=== PATIENT | female | born 1985 | race Hispanic/Latino ===

== ENCOUNTER 2023-12-27 02:25 | Emergency (ER) | payer SELFPAY ==
[~2023-12-27] VITALS: Ht 170.2 cm; Wt 131.5 kg
[~2023-12-27 02:25] MED LIST: AMLO-258 PO; HYDR25TA PO; LEVE500T98 PO; LOSA100T59 PO; SITA1TAB6 PO
[2023-12-27] MEDS ORDERED: ASPIRIN 81MG CHEW TAB PO ONE (03:00)
[2023-12-27 03:22] LABS: BASOPHILS # (AUTO) 0.04 K/uL (0.00-0.20); BASOPHILS % (AUTO) 0.4 % (0.0-5.0); EOSINOPHILS # (AUTO) 0.25 K/uL (0.00-0.70); EOSINOPHILS % (AUTO) 2.7 % (0.0-8.0); HEMATOCRIT 28.5 % (36-48); IMMATURE GRANULOCYTE ABSOLUTE 0.14 K/uL (0-1); LYMPHOCYTES # (AUTO) 2.2 K/uL (1.0-4.8); LYMPHOCYTES % (AUTO) 23.8 % (21.0-51.0); MEAN CORPUSCULAR HEMOGLOBIN 26.6 pg (27.0-33.0); MEAN CORPUSCULAR VOLUME 78.1 fL (79-99); MONOCYTES # (AUTO) 0.5 K/uL (0.1-1.0); MONOCYTES % (AUTO) 5.9 % (3.0-13.0); NEUTROPHILS % (AUTO) 65.7 % (40.0-77.0); PLATELET COUNT (AUTO) 276 K/uL (130-400); RED BLOOD CELL COUNT(AUTO) 3.65 MIL/uL (4.00-5.50); RED CELL DISTRIBUTION WIDTH 14.4 % (11.0-15.5); WHITE BLOOD COUNT (AUTO) 9.1 K/uL (4.8-10.8)
[2023-12-27] MEDS: NITROGLYCERIN 1GM OINT 1 INCH/1GM TD ONE (03:22)
[2023-12-27] MEDS: ASPIRIN 325MG TAB PO ONE (03:26)
[2023-12-27 03:33] LABS: BILIRUBIN,TOTAL 0.3 mg/dL (0.2-1.0); CREATININE 0.6 mg/dL (0.5-1.0); POTASSIUM 3.1 mmol/L (3.5-5.1); TOTAL PROTEIN, SERUM 7.2 g/dL (6.0-8.3)
[2023-12-27 03:41] LABS: B-TYPE NATRIURETIC PEPTIDE 140 pg/mL (0-100)
[2023-12-27] MEDS: hydrALAZine 20MG/ML VIAL IV ONE (04:44)
[2023-12-27] MEDS: POTASSIUM CHLORIDE 10% ELIXIR 20 MEQ/15 ML UDCUP PO ONE (04:45)
[2023-12-27] MEDS: FUROSEMIDE 40MG VIAL IV ONE (04:45)
[2023-12-27] MEDS: INSULIN LISPRO 100 UNIT/ML 3ML SQ ONE (04:47)
[2023-12-27 05:17] LABS: APPEARANCE,URINE CLEAR (CLEAR); BILIRUBIN,URINE NEGATIVE (NEGATIVE); COLOR,URINE LIGHT-YELLOW (YELLOW); GLUCOSE, URINE (UA) >=1000 mg/dL (NEGATIVE); KETONES,URINE NEGATIVE (NEGATIVE); LEUKOCYTE ESTERASE ,URINE 250 Leu/uL (NEGATIVE); NITRATE,URINE NEGATIVE (NEGATIVE); OCCULT BLOOD,URINE MODERATE (NEGATIVE); PROTEIN,URINE 10 mg/dL (NEGATIVE); UROBILINOGEN,URINE 0.2 mg/dL (0.2-1.0)
[2023-12-27 05:18] LABS: ADD UA MICROSCOPIC YES
[2023-12-27 05:20] LABS: BACTERIA,URINE RARE /HPF (None Seen); RBC,URINE 26-50 /HPF (0-1); SQUAMOUS EPITHELIAL CELL,UR RARE /HPF (0-2); WBC,URINE 26-50 /HPF (0-1)
[2023-12-27] MEDS ORDERED: LEVE500T19 PO (05:33)
[2023-12-27] MEDS ORDERED: LOSA100T59 PO (05:33)
[2023-12-27] MEDS ORDERED: SITA1TAB6 PO (05:33)
[2023-12-27] MEDS: LOSARTAN 100 MG TABLET PO ONE (05:37)
[2023-12-27] MEDS: amLODIPine 5 MG TAB PO ONE (05:38)
[2023-12-27] MEDS: SULFAMETHOX-TMP DS 800/160 TAB PO SCH (05:52)
[2023-12-27] MEDS: CLONIDINE HCL 0.2 MG TABLET PO ONE (06:10)
[2023-12-27 06:22] VITALS: BP 169/87; PULSE 86; RESP 17; O2SAT 98
[2023-12-27] MEDS ORDERED: SULF1TAB42 PO (06:24)
[2023-12-27] MEDS ORDERED: NITR100C4 PO (06:26)
== END 2023-12-27 06:34 | disposition home or self-care (01) ==
LOC: EDH 02:25
DX: I10 Essential (primary) hypertension (principal); N39.0 Urinary tract infection, site not specified; E11.9 Type 2 diabetes mellitus without complications; E78.00 Pure hypercholesterolemia, unspecified; G40.909 Epilepsy, unspecified, not intractable, without status epilepticus; Z79.899 Other long term (current) drug therapy; Z79.84 Long term (current) use of oral hypoglycemic drugs; Z98.890 Other specified postprocedural states
CPT/HCPCS: 99285; 96374; 71045; 96375; 84484; 80053; 83880; 85025; 87086; 82948; 81001; 36415; 96372; J0360; J1940

== ENCOUNTER 2023-12-30 01:09 | Emergency (ER) | payer SELFPAY ==
[~2023-12-30 01:09] MED LIST changes: +LEVE500T19 PO; +NITR100C4 PO
[2023-12-30 01:34] LABS: BASOPHILS # (AUTO) 0.04 K/uL (0.00-0.20); BASOPHILS % (AUTO) 0.5 % (0.0-5.0); EOSINOPHILS # (AUTO) 0.28 K/uL (0.00-0.70); EOSINOPHILS % (AUTO) 3.4 % (0.0-8.0); HEMATOCRIT 29.2 % (36-48); IMMATURE GRANULOCYTE ABSOLUTE 0.04 K/uL (0-1); LYMPHOCYTES # (AUTO) 2.3 K/uL (1.0-4.8); LYMPHOCYTES % (AUTO) 27.9 % (21.0-51.0); MEAN CORPUSCULAR HEMOGLOBIN 25.9 pg (27.0-33.0); MEAN CORPUSCULAR HGB CONC 32.9 g/dL (32.0-36.0); MEAN CORPUSCULAR VOLUME 78.7 fL (79-99); MONOCYTES # (AUTO) 0.6 K/uL (0.1-1.0); MONOCYTES % (AUTO) 6.9 % (3.0-13.0); NEUTROPHILS % (AUTO) 60.8 % (40.0-77.0); PLATELET COUNT (AUTO) 282 K/uL (130-400); RED BLOOD CELL COUNT(AUTO) 3.71 MIL/uL (4.00-5.50); RED CELL DISTRIBUTION WIDTH 14.3 % (11.0-15.5); WHITE BLOOD COUNT (AUTO) 8.3 K/uL (4.8-10.8)
[2023-12-30 01:45] LABS: CREATININE 0.7 mg/dL (0.5-1.0); POTASSIUM 3.7 mmol/L (3.5-5.1)
[2023-12-30 01:57] LABS: B-TYPE NATRIURETIC PEPTIDE 119 pg/mL (0-100)
[2023-12-30 02:28] LABS: ADD UA MICROSCOPIC YES; APPEARANCE,URINE CLEAR (CLEAR); BILIRUBIN,URINE NEGATIVE (NEGATIVE); COLOR,URINE LIGHT-YELLOW (YELLOW); GLUCOSE, URINE (UA) >=1000 mg/dL (NEGATIVE); KETONES,URINE NEGATIVE (NEGATIVE); LEUKOCYTE ESTERASE ,URINE 500 Leu/uL (NEGATIVE); NITRATE,URINE NEGATIVE (NEGATIVE); OCCULT BLOOD,URINE MODERATE (NEGATIVE); PH,URINE 6.5 (5.0-8.0); PROTEIN,URINE NEGATIVE (NEGATIVE); UROBILINOGEN,URINE 0.2 mg/dL (0.2-1.0)
[2023-12-30 02:29] LABS: BACTERIA,URINE RARE /HPF (None Seen); RBC,URINE 26-50 /HPF (0-1); SQUAMOUS EPITHELIAL CELL,UR RARE /HPF (0-2); WBC,URINE 51-100 /HPF (0-1)
[2023-12-30 02:39] LABS: AMPHET/METH SCREEN,URINE NEGATIVE (NEGATIVE); BARBITURATE SCREEN, URINE NEGATIVE (NEGATIVE); BENZODIAZEPINES SCREEN,URINE NEGATIVE (NEGATIVE); CANNABINOID SCREEN,URINE NEGATIVE (NEGATIVE); COCAINE SCREEN,URINE NEGATIVE (NEGATIVE); OPIATE SCREEN,URINE NEGATIVE (NEGATIVE); PHENCYCLIDINE SCREEN,URINE NEGATIVE (NEGATIVE)
[2023-12-30] MEDS: NITROGLYCERIN 1GM OINT 1 INCH/1GM TD ONE (03:25)
[2023-12-30] MEDS: ASPIRIN 325MG TAB PO ONE (03:25)
[2023-12-30] MEDS: hydrALAZine 20MG/ML VIAL IV ONE (03:25)
[2023-12-30] MEDS: LoSARTan 25 MG TABLET PO ONE (04:13)
[2023-12-30] MEDS ORDERED: CLON0.2T PO (05:05)
[2023-12-30] MEDS ORDERED: NITR100C4 PO (05:05)
[2023-12-30] MEDS: cefTRIAXone 1G VIAL IVPB ONE (06:01)
[2023-12-30] MEDS: cloNIDine HCL 0.2 MG TABLET PO ONE (06:01)
[2023-12-30 06:10] VITALS: BP 156/80; PULSE 75; RESP 20; O2SAT 98
== END 2023-12-30 06:39 | disposition home or self-care (01) ==
LOC: EDH 01:09
DX: R07.89 Other chest pain (principal); I16.1 Hypertensive emergency; I10 Essential (primary) hypertension; E11.65 Type 2 diabetes mellitus with hyperglycemia; N39.0 Urinary tract infection, site not specified; G40.909 Epilepsy, unspecified, not intractable, without status epilepticus; E78.00 Pure hypercholesterolemia, unspecified; Z79.899 Other long term (current) drug therapy; Z79.2 Long term (current) use of antibiotics; Z98.890 Other specified postprocedural states; Z79.84 Long term (current) use of oral hypoglycemic drugs
CPT/HCPCS: 99285; 96374; 71045; 96375; 82550; 84484; 80048; 83880; 80305; 85025; 36415; 93005; 81001; J0360; J0696

== ENCOUNTER 2024-01-18 17:10 | Emergency (ER) | payer SELFPAY ==
[~2024-01-18] VITALS: Ht 170.2 cm; Wt 88.9 kg
[~2024-01-18 17:10] MED LIST changes: +CLON0.2T PO
[2024-01-18 17:50] LABS: APPEARANCE,URINE CLOUDY (CLEAR); BASOPHILS # (AUTO) 0.05 K/uL (0.00-0.20); BASOPHILS % (AUTO) 0.5 % (0.0-5.0); BILIRUBIN,URINE NEGATIVE (NEGATIVE); COLOR,URINE LIGHT-YELLOW (YELLOW); EOSINOPHILS # (AUTO) 0.35 K/uL (0.00-0.70); EOSINOPHILS % (AUTO) 3.8 % (0.0-8.0); GLUCOSE, URINE (UA) NEGATIVE (NEGATIVE); HEMATOCRIT 37.7 % (36-48); IMMATURE GRANULOCYTE ABSOLUTE 0.03 K/uL (0-1); KETONES,URINE 10 mg/dL (NEGATIVE); LEUKOCYTE ESTERASE ,URINE 500 Leu/uL (NEGATIVE); LYMPHOCYTES # (AUTO) 2.5 K/uL (1.0-4.8); LYMPHOCYTES % (AUTO) 27.2 % (21.0-51.0); MEAN CORPUSCULAR HEMOGLOBIN 25.9 pg (27.0-33.0); MEAN CORPUSCULAR HGB CONC 32.9 g/dL (32.0-36.0); MEAN CORPUSCULAR VOLUME 78.9 fL (79-99); MONOCYTES # (AUTO) 0.5 K/uL (0.1-1.0); MONOCYTES % (AUTO) 5.2 % (3.0-13.0); NEUTROPHILS # (AUTO) 5.9 K/uL (1.8-7.7); NITRATE,URINE NEGATIVE (NEGATIVE); OCCULT BLOOD,URINE SMALL (NEGATIVE); PH,URINE 5.5 (5.0-8.0); PLATELET COUNT (AUTO) 300 K/uL (130-400); PROTEIN,URINE 20 mg/dL (NEGATIVE); RED BLOOD CELL COUNT(AUTO) 4.78 MIL/uL (4.00-5.50); RED CELL DISTRIBUTION WIDTH 13.4 % (11.0-15.5); UROBILINOGEN,URINE 0.2 mg/dL (0.2-1.0); WHITE BLOOD COUNT (AUTO) 9.3 K/uL (4.8-10.8)
[2024-01-18 17:57] LABS: ADD UA MICROSCOPIC YES; AMPHET/METH SCREEN,URINE NEGATIVE (NEGATIVE); BARBITURATE SCREEN, URINE NEGATIVE (NEGATIVE); BENZODIAZEPINES SCREEN,URINE NEGATIVE (NEGATIVE); CANNABINOID SCREEN,URINE NEGATIVE (NEGATIVE); COCAINE SCREEN,URINE NEGATIVE (NEGATIVE); OPIATE SCREEN,URINE NEGATIVE (NEGATIVE); PHENCYCLIDINE SCREEN,URINE NEGATIVE (NEGATIVE)
[2024-01-18] MEDS: leveTIRACEtam 500 MG/5 ML SD VIAL IV SCH (18:00)
[2024-01-18 18:11] LABS: BACTERIA,URINE RARE /HPF (None Seen); MUCUS,URINE RARE LPF (None Seen); NON-SQUAMOUS EPITHELIAL CELL 1 /HPF (0-2); OTHER CASTS, URINE 1 /LPF (None Seen); SQUAMOUS EPITHELIAL CELL,UR FEW /HPF (0-2); WBC,URINE 26-50 /HPF (0-1)
[2024-01-18] MEDS: AMOX/CLAV 875/125MG TAB PO SCH (18:32)
[2024-01-18] MEDS: POTASSIUM BICARB/CIT AC 25 MEQ TABLET.EFF PO ONE (18:49)
[2024-01-18] MEDS ORDERED: POTA-192 PO (20:06)
[2024-01-18 20:20] VITALS: BP 146/64; PULSE 69; RESP 20; TEMP 98.5; O2SAT 97
== END 2024-01-18 20:23 | disposition home or self-care (01) ==
LOC: EDH 17:10
DX: E87.6 Hypokalemia (principal); M62.838 Other muscle spasm; R56.9 Unspecified convulsions; E11.9 Type 2 diabetes mellitus without complications; I10 Essential (primary) hypertension; Z79.899 Other long term (current) drug therapy; Z98.890 Other specified postprocedural states
CPT/HCPCS: 99284; 96365; 80048; 80305; 85025; 87086; 81001; 36415; J1953

== ENCOUNTER 2024-03-30 06:58 | Emergency (ER) | payer SELFPAY ==
[~2024-03-30] VITALS: Ht 170.2 cm; Wt 99.8 kg
[~2024-03-30 06:58] MED LIST changes: +POTA-192 PO
[2024-03-30] MEDS ORDERED: LEVE10006 PO (07:05)
[2024-03-30] MEDS ORDERED: LOSA100T59 PO (07:05)
[2024-03-30] MEDS: 0.9%NACL 1000ML 1,000 ML IV ONE (07:23)
[2024-03-30] MEDS: DiphenhydrAMINE HCL 50 MG/ML VIAL IV ONE (07:23)
[2024-03-30] MEDS: acetaMINOPHEN 325 MG TAB PO ONE (07:23)
[2024-03-30] MEDS: PROCHLORPERAZINE 10MG/2ML INJ IV ONE (07:23)
[2024-03-30 07:31] LABS: BASOPHILS # (AUTO) 0.04 K/uL (0.00-0.20); BASOPHILS % (AUTO) 0.5 % (0.0-5.0); EOSINOPHILS # (AUTO) 0.16 K/uL (0.00-0.70); HEMATOCRIT 33.7 % (36-48); IMMATURE GRANULOCYTE ABSOLUTE 0.03 K/uL (0-1); LYMPHOCYTES # (AUTO) 2.2 K/uL (1.0-4.8); LYMPHOCYTES % (AUTO) 27.7 % (21.0-51.0); MEAN CORPUSCULAR HGB CONC 33.8 g/dL (32.0-36.0); MEAN CORPUSCULAR VOLUME 79.7 fL (79-99); MONOCYTES # (AUTO) 0.4 K/uL (0.1-1.0); MONOCYTES % (AUTO) 5.3 % (3.0-13.0); NEUTROPHILS # (AUTO) 5.1 K/uL (1.8-7.7); NEUTROPHILS % (AUTO) 64.1 % (40.0-77.0); PLATELET COUNT (AUTO) 302 K/uL (130-400); RED BLOOD CELL COUNT(AUTO) 4.23 MIL/uL (4.00-5.50); RED CELL DISTRIBUTION WIDTH 13.8 % (11.0-15.5)
--- NOTE | 2024-03-30 07:33 | ERN ---
General Chief Complaint: Headache Stated Complaint: HEADACHE Time Seen by MD: 07:08 Source: patient History of Present Illness Initial Comments 39-year-old female coming in to be evaluated for headache. Patient states he has a history of seizures but has been having this headache for a couple of days. Patient also feels that she was under lot of stress and is currently menstruating so she also complains of mild lower abdominal discomfort. Allergies: Coded Allergies: No Known Allergies (Unverified Allergy, Unknown, 09/28/23) Home Meds Active Scripts Potassium Chloride (K-Dur/Klor-Con) 20 Meq Ertab, 20 MEQ PO BID for 5 Days, #10 TAB.EC Prov:CJ LORENZO NP 01/18/24 Clonidine HCl (Clonidine HCl) 0.2 Mg Tablet, 0.2 MG PO TID for high bp, #30 TAB Prov:JOSIE GRUBER MD 12/30/23 Nitrofurantoin Monohyd/M-Cryst (Macrobid 100 mg Capsule) 100 Mg Capsule, 100 MG PO BID for 7 Days, #14 CAP Prov:JOSIE GRUBER MD 12/30/23 Nitrofurantoin Monohyd/M-Cryst (Macrobid 100 mg Capsule) 100 Mg Capsule, 100 MG PO BID for 7 Days, #14 CAP Prov:SULLY LEWIS MD 12/27/23 Reported Medications Levetiracetam (Levetiracetam) 1,000 Mg Tablet, 1 TAB PO BID for 30 Days, #60 TAB 0 Refills 03/30/24 Losartan Potassium (Losartan Potassium) 100 Mg Tablet, 100 MG PO HS, TAB 03/30/24 Hydrochlorothiazide (Hydrochlorothiazide) 25 Mg Tablet, 1 TAB PO DAILY for 30 Days, #30 TAB 0 Refills 03/30/24 Amlodipine Besylate (Amlodipine Besylate) 10 Mg Tablet, 1 TAB PO DAILY for 30 Days, #30 TAB 0 Refills 03/30/24 Sitagliptin Phos/Metformin HCl (Janumet 50-1,000 mg Tablet) 50 Mg-1,000 Mg Tablet, 1 TAB PO BID for 30 Days, #60 TAB 0 Refills 03/30/24 Sitagliptin Phos/Metformin HCl (Janumet 50-1,000 mg Tablet) 50 Mg-1,000 Mg Tablet, 1 EACH PO BID, TAB 12/27/23 Losartan Potassium (Losartan Potassium) 100 Mg Tablet, 100 MG PO DAILY, TAB 12/27/23 Levetiracetam (Levetiracetam) 500 Mg Tablet, 1000 MG PO BID, TAB 12/27/23 Hydrochlorothiazide (Hydrochlorothiazide) 25 Mg Tablet, 25 MG PO DAILY, TAB 12/27/23 Amlodipine Besylate (Amlodipine Besylate) 10 Mg Tablet, 10 MG PO DAILY for 30 Days, #30 TAB 0 Refills 12/27/23 Losartan Potassium (Losartan Potassium) 100 Mg Tablet, 100 MG PO DAILYDINNER, TAB 09/28/23 Hydrochlorothiazide (Hydrochlorothiazide) 25 Mg Tablet, 25 MG PO DAILY, TAB 09/28/23 Amlodipine Besylate (Amlodipine Besylate) 10 Mg Tablet, 10 MG PO DAILY for 30 Days, #30 TAB 0 Refills 09/28/23 Sitagliptin Phos/Metformin HCl (Janumet 50-1,000 mg Tablet) 50 Mg-1,000 Mg Tablet, 1 EACH PO BIDMEALS, TAB 09/28/23 Levetiracetam (Levetiracetam) 500 Mg Tab.er.24h, 500 MG PO BID, TAB 09/28/23 Past Medical History Past Medical History: Diabetes-Type II, Hypertension, Seizure Past Surgical History: Surgical History Other: C SECTION X3 Family History Family History: Negative Social History Social History: Drugs, ETOH, Negative Female( History) History: Not Applicable LMP: Mar 30, 2024 ROS Dictation CONSTITUTIONAL: No chills, no fever, no weakness, no diaphoresis, no malaise. HEAD/FACE: No signs of trauma. EENT: No eye pain, no blurred vision, no tearing, no double vision, no ear pain, no ear discharge, no nose pain, no nasal congestion, no throat pain, no throat swelling, no mouth pain. RESPIRATORY: No cough, no orthopnea, no SOB, no stridor, no wheezing. CARDIOVASCULAR: No chest pain, no edema, no palpitations, no syncope. GASTROINTESTINAL/ABDOMINAL: No abdominal pain, no constipation, no diarrhea, no nausea, no vomiting. GENITOURINARY: No abnormal discharge, no dysuria, no frequent urination, no hematuria. No complaints of pain in the genitals. MUSCULOSKELETAL: No back pain, no gout, no joint pain, no joint swelling, no muscle pain, no muscle stiffness, no neck pain. INTEGUMENTARY: No change in color, no change in hair/nails, no dryness, no lesion, no lumps, no rash. NEUROLOGICAL/PSYCH: No anxiety, not depressed, no emotional problem, no headache, no numbness, no pre-existing deficit, no history of seizures, no tremors, no weakness. HEMATOLOGIC/LYMPHATIC: Not anemic, no history of blood clots, no apparent b leeding, no bruising, glands not swollen. All Systems Negative, Except as Noted. Physical Exam Physical Exam Dictation VITAL SIGNS: Reviewed. GENERAL APPEARANCE: Alert, oriented x3, no acute distress, obese. HEAD AND FACE: Non-traumatic. EYES: PERRL, pink conjunctivas, eyelid no trauma, anterior chamber clear. EARS: Pinnas intact and no signs of trauma or erythema. Ear canals clear and no discharge. TMs no erythema. NOSE: No discharge, no bleeding. OROPHARYNX: Mouth normal, teeth no caries, tongue pink. Pharynx clear, no erythema. Tonsils no exudates, no abscesses noted. Mucous membrane moist. NECK: Supple, non-tender, no thyromegaly, no masses, no JVD, no bruits. BREAST: Deferred. CHEST: No tenderness, no crepitus, no paradoxical movement, no retractions. LUNGS: Clear, well-ventilated, symmetric, no rales, no wheezing, no rhonchi, no stridor, good breath sounds bilaterally. HEART: Regular rate, regular rhythm, no murmur, no gallops. VASCULAR: No peripheral edema. ABDOMEN: Soft, positive bowel sounds, nondistended, no guarding, nontender, no rebound, no masses no hepatomegaly, no splenomegaly, no Penaloza's sign, no hernias. RECTAL: Deferred. GENITAL: Deferred. NEUROLOGICAL: Normal speech, gross motor function intact, gross sensory function intact. MUSCULOSKELETAL: Bilateral trapezius muscle tenderness on palpation EXTREMITIES: Nontender, full range of motion. SKIN: Color pink, dry, no turgor, no rash, no lacerations, no abrasions, no contusions. LYMPHATICS: Deferred. Results Laboratory and Microbiology Lab and Micro Result Laboratory Tests Test 03/30/24 07:19 03/30/24 07:41 White Blood Count 8.0 K/uL (4.8-10.8) Red Blood Count 4.23 MIL/uL (4.00-5.50) Hemoglobin 11.4 g/dL (12.0-16.0) L Hematocrit 33.7 % (36-48) L Mean Corpuscular Volume 79.7 fL (79-99) Mean Corpuscular Hemoglobin 27.0 pg (27.0-33.0) Mean Corpuscular Hemoglobin Concent 33.8 g/dL (32.0-36.0) Red Cell Distribution Width 13.8 % (11.0-15.5) Platelet Count 302 K/uL (130-400) Mean Platelet Volume 11.0 fL (7.5-10.5) H Immature Granulocyte % (Auto) 0.4 % (0-1) Neutrophils (%) (Auto) 64.1 % (40.0-77.0) Lymphocytes (%) (Auto) 27.7 % (21.0-51.0) Monocytes (%) (Auto) 5.3 % (3.0-13.0) Eosinophils (%) (Auto) 2.0 % (0.0-8.0) Basophils (%) (Auto) 0.5 % (0.0-5.0) Neutrophils # (Auto) 5.1 K/uL (1.8-7.7) Lymphocytes # (Auto) 2.2 K/uL (1.0-4.8) Monocytes # (Auto) 0.4 K/uL (0.1-1.0) Eosinophils # (Auto) 0.16 K/uL (0.00-0.70) Basophils # (Auto) 0.04 K/uL (0.00-0.20) Absolute Immature Granulocyte (auto 0.03 K/uL (0-1) Nucleated Red Blood Cells 0.0 % (0.0-0.19) Sodium Level 140 mmol/L (136-145) Potassium Level 3.5 mmol/L (3.5-5.1) Chloride Level 105 mmol/L (101-111) Carbon Dioxide Level 29 mmol/L (21-32) Blood Urea Nitrogen 21 mg/dL (7-18) H Creatinine 1.2 mg/dL (0.5-1.0) H Glomerular Filtration Rate Calc 59 mL/min (>90) Random Glucose 131 mg/dL (70-105) H Total Calcium 9.9 mg/dL (8.5-10.1) Urine Color LIGHT-YELLOW (YELLOW) Urine Appearance CLEAR (CLEAR) Urine pH 5.0 (5.0-8.0) Urine Specific [place] 1.015 (1.001-1.031) Urine Protein NEGATIVE mg/dL (NEGATIVE) Urine Glucose (UA) NEGATIVE mg/dL (NEGATIVE) Urine Ketones NEGATIVE mg/dL (NEGATIVE) Urine Occult Blood NEGATIVE (NEGATIVE) Urine Nitrate NEGATIVE (NEGATIVE) Urine Bilirubin NEGATIVE mg/dL (NEGATIVE) Urine Urobilinogen 0.2 mg/dL (0.2-1.0) Urine Leukocyte Esterase NEGATIVE Mil/uL MDM MDM: Differential diagnosis: Seizure history, tension headache, menstrual cramps, Patient is a 39-year-old female coming in to be evaluated for headache. Patient does have a history of seizures. Patient has not had a seizure and a bit. Patient headache was localized to the bilateral trapezius muscles patient does state she has a little rough stress in his currently menstruating. Laboratory workup negative for acute findings mild dehydration was present. Patient was hydrated with IV fluids migraine cocktail was given patient feels much better will be discharged in stable condition. ED Course Orders Procedure Category Date Status Time Cbc With Differential LAB 03/30/24 Complete 07:13 Urinalysis Profile LAB 03/30/24 Complete 07:13 0.9%Nacl 1000ml (Ns PHA 03/30/24 Complete 1000ml) 07:30 Acetaminophen 325 Tab PHA 03/30/24 Complete (Tylenol 325mg Tab 07:30 Basic Metabolic Panel LAB 03/30/24 Complete 07:13 Prochlorperazine PHA 03/30/24 Complete 10mg/2ml Inj 07:30 Diphenhydramine Hcl PHA 03/30/24 Complete (Benadryl Inj) 07:30 Current Medications Medications (Trade) Dose Ordered Sig/Jolynn Route PRN Reason Start Time Stop Time Status Last Admin Dose Admin Acetaminophen (TYLenol 325MG TAB) 650 mg ONCE ONCE PO 03/30/24 07:30 03/30/24 07:31 DC 03/30/24 07:23 Diphenhydramine HCl (BENAdryl INJ) 25 mg ONCE ONCE IV 03/30/24 07:30 03/30/24 07:31 DC 03/30/24 07:23 Prochlorperazine Edisylate (Compazine 10mg/ 2ml Inj) 10 mg ONCE ONCE IV 03/30/24 07:30 03/30/24 07:31 DC 03/30/24 07:23 Sodium Chloride 1,000 ml @ 0 mls/hr ONCE ONCE IV 03/30/24 07:30 03/30/24 07:31 DC 03/30/24 07:23 Vital Signs Date Time Temp Pulse Resp B/P (MAP) Pulse Ox O2 Delivery O2 Flow Rate FiO2 03/30/24 07:06 98.2 84 20 153/81 98 Room Air* 0 21 03/30/24 06:59 98.2 84 12 154/91 98 Room Air 0 DX & DISP Disposition: Discharge Departure Impression: Primary Impression: Tension headache Additional Impression: Dehydration Condition: Stable Additional Instructions: FOLLOW-UP WITH PRIMARY CARE PROVIDER IN 1 TO 2 DAYS. TAKE MEDICATIONS DIRECTED HERE IN THE EMERGENCY ROOM. OKAY TO CONTINUE HOME MEDICATIONS UNLESS OTHERWISE DISCUSSED DURING YOUR VISIT IN THE EMERGENCY ROOM TODAY. RETURN TO YOUR NEAREST EMERGENCY ROOM IF SYMPTOMS WORSEN OR IF THERE IS NO IMPROVEMENT. C ALL 911 IF YOU NEED IMMEDIATE ASSISTANCE. TAKE TYLENOL [id number] NEEDED AND IF NO CONTRAINDICATIONS ARE PRESENT. INCREASE ORAL HYDRATION. A WOUND CULTURE OR URINE CULTURE WAS ORDERED HERE IN THE EMERGENCY ROOM DEPARTMENT PLEASE FOLLOW-UP WITH PRIMARY CARE PROVIDER AND ADVISE THEM TO GET REPEAT PORTS FROM OUR FACILITY. IF YOU HAD ANY ROSSY WRAP/SPLINTS THAT WERE APPLIED HERE, PLEASE DO NOT REMOVE THEM UNTIL YOU SEE YOUR PRIMARY CARE OR SPECIALTY. Referrals: Referrals: SELF,REFERRAL (PCP) IAN ARREOLA MD Time of Disposition: 08:01 CRUZITO CONTRERAS MD Mar 30, 2024 07:33
[2024-03-30 07:36] LABS: CREATININE 1.2 mg/dL (0.5-1.0); POTASSIUM 3.5 mmol/L (3.5-5.1)
[2024-03-30 07:55] LABS: APPEARANCE,URINE CLEAR (CLEAR); BILIRUBIN,URINE NEGATIVE (NEGATIVE); COLOR,URINE LIGHT-YELLOW (YELLOW); GLUCOSE, URINE (UA) NEGATIVE (NEGATIVE); KETONES,URINE NEGATIVE (NEGATIVE); LEUKOCYTE ESTERASE ,URINE NEGATIVE Leu/uL (NEGATIVE); NITRATE,URINE NEGATIVE (NEGATIVE); OCCULT BLOOD,URINE NEGATIVE (NEGATIVE); PROTEIN,URINE NEGATIVE (NEGATIVE); UROBILINOGEN,URINE 0.2 mg/dL (0.2-1.0)
[2024-03-30 07:56] LABS: ADD UA MICROSCOPIC NO
[2024-03-30 09:12] VITALS: BP 140/74; PULSE 81; RESP 18; TEMP 98.1; O2SAT 97
== END 2024-03-30 09:10 | disposition home or self-care (01) ==
LOC: EDH 06:58
DX: G44.209 Tension-type headache, unspecified, not intractable (principal); E86.0 Dehydration; E11.9 Type 2 diabetes mellitus without complications; I10 Essential (primary) hypertension; Z79.84 Long term (current) use of oral hypoglycemic drugs; Z79.899 Other long term (current) drug therapy
CPT/HCPCS: 99284; 96374; 96361; 96375; 80048; 85025; 81003; 36415; J1200; J7030; J0780

== ENCOUNTER 2024-05-11 18:34 | Emergency (ER) | payer SELFPAY ==
[~2024-05-11] VITALS: Ht 165.1 cm; Wt 90.7 kg
[~2024-05-11 18:34] MED LIST changes: +LEVE10006 PO
[2024-05-11 19:15] LABS: ADD UA MICROSCOPIC YES; APPEARANCE,URINE CLEAR (CLEAR); BILIRUBIN,URINE NEGATIVE (NEGATIVE); COLOR,URINE LIGHT-YELLOW (YELLOW); GLUCOSE, URINE (UA) NEGATIVE (NEGATIVE); KETONES,URINE NEGATIVE (NEGATIVE); LEUKOCYTE ESTERASE ,URINE NEGATIVE Leu/uL (NEGATIVE); NITRATE,URINE NEGATIVE (NEGATIVE); OCCULT BLOOD,URINE NEGATIVE (NEGATIVE); PH,URINE 5.5 (5.0-8.0); PROTEIN,URINE 10 mg/dL (NEGATIVE); UROBILINOGEN,URINE 0.2 mg/dL (0.2-1.0)
[2024-05-11 19:17] LABS: MUCUS,URINE RARE LPF (None Seen); SQUAMOUS EPITHELIAL CELL,UR RARE /HPF (0-2)
[2024-05-11 19:26] LABS: BASOPHILS # (AUTO) 0.04 K/uL (0.00-0.20); BASOPHILS % (AUTO) 0.4 % (0.0-5.0); EOSINOPHILS # (AUTO) 0.26 K/uL (0.00-0.70); EOSINOPHILS % (AUTO) 2.8 % (0.0-8.0); HEMATOCRIT 32.8 % (36-48); IMMATURE GRANULOCYTE ABSOLUTE 0.03 K/uL (0-1); LYMPHOCYTES # (AUTO) 2.1 K/uL (1.0-4.8); MEAN CORPUSCULAR HGB CONC 34.1 g/dL (32.0-36.0); MONOCYTES # (AUTO) 0.4 K/uL (0.1-1.0); MONOCYTES % (AUTO) 4.4 % (3.0-13.0); NEUTROPHILS # (AUTO) 6.4 K/uL (1.8-7.7); NEUTROPHILS % (AUTO) 69.1 % (40.0-77.0); PLATELET COUNT (AUTO) 202 K/uL (130-400); RED BLOOD CELL COUNT(AUTO) 4.15 MIL/uL (4.00-5.50); WHITE BLOOD COUNT (AUTO) 9.2 K/uL (4.8-10.8)
[2024-05-11 19:40] LABS: CREATININE 0.7 mg/dL (0.5-1.0); POTASSIUM 4.3 mmol/L (3.5-5.1)
[2024-05-11] MEDS: PANTOPrazole 40 MG/VIAL IVP ONE (19:52)
[2024-05-11] MEDS: NITROGLYCERIN 1GM OINT 1 INCH/1GM TD ONE (19:53)
[2024-05-11] MEDS: acetaMINOPHEN 500 MG TABLET PO ONE (19:53)
[2024-05-11] MEDS: ASPIRIN 325MG TAB PO ONE (19:53)
[2024-05-11 20:01] LABS: B-TYPE NATRIURETIC PEPTIDE 28 pg/mL (0-100)
[2024-05-11 20:12] LABS: ALANINE AMINOTRANSFERASE 9 U/L (12-78); ALBUMIN 3.4 g/dL (3.5-5.0); ASPARTATE AMINOTRANSFERASE 16 U/L (10-37); BILIRUBIN,DIRECT < 0.1 mg/dL (0.0-0.3); BILIRUBIN,TOTAL 0.4 mg/dL (0.2-1.0); TOTAL PROTEIN, SERUM 7.8 g/dL (6.0-8.3)
--- NOTE | 2024-05-11 20:59 | EKG ---
[facility] Test Date: 2024-05-11 Test Time: 18:41:57 Pat Name: MARGO MURPHY Department: ED Room: Gender: F [employer] Supervisor: [id number] : 1985 Requested By: NIKOLAI MCKAY Order Number: [id number] Reading MD: Michael Barbosa Measurements Intervals [place] Rate: 67 P: 33 MA: 156 QRS: 34 QRSD: 91 T: 66 QT: 402 QTc: 426 Interpretive Statements Sinus rhythm Compared to ECG 12/30/2023 01:17:24 No significant changes Electronically Signed On 05-13-2024 12:14:17 INFORMATICS SPECIALIST by Michael Barbosa Please click the below link to view image of tracing.
--- NOTE | 2024-05-11 21:02 | HMCIMG ---
CHEST 1VW CLINICAL HISTORY: CHEST PAIN COMPARISON: 12/30/2023 TECHNIQUE: Single view of the chest was obtained. FINDINGS: Lungs are clear. The cardiac size and mediastinum are unremarkable. The bony structures are within normal limits. IMPRESSION: No acute cardiopulmonary process identified.
[2024-05-11 21:31] VITALS: BP 125/65; PULSE 65; RESP 18; TEMP 98.5; O2SAT 99
--- NOTE | 2024-05-11 21:31 | ERN ---
ED Note History of Present Illness Stated Complaint: CP Chief Complaint: Chest Pain Time Seen by MD: 18:46 Time Seen by Midlevel: 18:46 Dictation: The patient is a 39-year-old female with a history of diabetes, hypertension, seizures who presents to the emergency department with complaints of left-sided chest pain onset last night around 10:00 p.m.. Patient denies any shortness of breath, cough, fevers, nausea vomiting or diarrhea, diaphoresis. Allergies: Coded Allergies: No Known Allergies (Unverified Allergy, Unknown, 09/28/23) Home Meds Active Scripts Potassium Chloride (K-Dur/Klor-Con) 20 Meq Ertab, 20 MEQ PO BID for 5 Days, #10 TAB.EC Prov:CJ LORENZO NP 01/18/24 Clonidine HCl (Clonidine HCl) 0.2 Mg Tablet, 0.2 MG PO TID for high bp, #30 TAB Prov:JOSIE GRUBER MD 12/30/23 Nitrofurantoin Monohyd/M-Cryst (Macrobid 100 mg Capsule) 100 Mg Capsule, 100 MG PO BID for 7 Days, #14 CAP Prov:JOSIE GRUBER MD 12/30/23 Nitrofurantoin Monohyd/M-Cryst (Macrobid 100 mg Capsule) 100 Mg Capsule, 100 MG PO BID for 7 Days, #14 CAP Prov:SULLY LEWIS MD 12/27/23 Reported Medications Levetiracetam (Levetiracetam) 1,000 Mg Tablet, 1 TAB PO BID for 30 Days, #60 TAB 0 Refills 03/30/24 Losartan Potassium (Losartan Potassium) 100 Mg Tablet, 100 MG PO HS, TAB 03/30/24 Hydrochlorothiazide (Hydrochlorothiazide) 25 Mg Tablet, 1 TAB PO DAILY for 30 Days, #30 TAB 0 Refills 03/30/24 Amlodipine Besylate (Amlodipine Besylate) 10 Mg Tablet, 1 TAB PO DAILY for 30 Days, #30 TAB 0 Refills 03/30/24 Sitagliptin Phos/Metformin HCl (Janumet 50-1,000 mg Tablet) 50 Mg-1,000 Mg Tablet, 1 TAB PO BID for 30 Days, #60 TAB 0 Refills 03/30/24 Sitagliptin Phos/Metformin HCl (Janumet 50-1,000 mg Tablet) 50 Mg-1,000 Mg Tablet, 1 EACH PO BID, TAB 12/27/23 Losartan Potassium (Losartan Potassium) 100 Mg Tablet, 100 MG PO DAILY, TAB 12/27/23 Levetiracetam (Levetiracetam) 500 Mg Tablet, 1000 MG PO BID, TAB 12/27/23 Hydrochlorothiazide (Hydrochlorothiazide) 25 Mg Tablet, 25 MG PO DAILY, TAB 12/27/23 Amlodipine Besylate (Amlodipine Besylate) 10 Mg Tablet, 10 MG PO DAILY for 30 Days, #30 TAB 0 Refills 12/27/23 Losartan Potassium (Losartan Potassium) 100 Mg Tablet, 100 MG PO DAILYDINNER, TAB 09/28/23 Hydrochlorothiazide (Hydrochlorothiazide) 25 Mg Tablet, 25 MG PO DAILY, TAB 09/28/23 Amlodipine Besylate (Amlodipine Besylate) 10 Mg Tablet, 10 MG PO DAILY for 30 Days, #30 TAB 0 Refills 09/28/23 Sitagliptin Phos/Metformin HCl (Janumet 50-1,000 mg Tablet) 50 Mg-1,000 Mg Tablet, 1 EACH PO BIDMEALS, TAB 09/28/23 Levetiracetam (Levetiracetam) 500 Mg Tab.er.24h, 500 MG PO BID, TAB 09/28/23 Past Medical History Past Medical History: Diabetes-Type II, Hypertension Surgical History: None Surgical History Other: C SECTION X3 Family History: Negative Social History: Drugs, ETOH, Negative History: Not Applicable RN Note Reviewed/Agreed w/PFSH: Yes Review of System Dictation Constitutional: Negative for fever,chills, and weight loss Eyes: Negative for injury, pain,redness, and discharge ENT: Negative for injury,pain or swelling Cardiovascular: Negative for palpitations, and edema positive for chest pain Respiratory: Negative for shortness of breath, cough, and wheezing, Abdomen/GI: Negative for abdominal pain, nausea, vomiting, diarrhea, and constipation Back: Negative for injury and pain : Negative for injury, bleeding and discharge MS/Extremity: Negative for injury and deformity Skin: Negative for rash, and discoloration Neuro: Negative for headache, weakness, numbness, tingling, and seizure Psych: Negative for suicide ideation, homicidal ideation, and hallucinations Initial Vital Sign VS Vital Signs Date Time Temp Pulse Resp B/P (MAP) Pulse Ox O2 Delivery O2 Flow Rate FiO2 05/11/24 18:36 98.4 75 18 131/60 99 Room Air 05/11/24 18:47 0 21 Physical Exam Dictation Vital Signs reviewed General Appearance: Alert, oriented x 3, no acute distress, well developed, nourished. Head and Face: non-traumatic. Eyes: PERRL, pink conjunctivas, eyelid no trauma, anterior chamber with arcus senilis. Ears: Pinnas intact and no signs of trauma or erythema ear canals clear and no discharge TM no erythema Nose: No discharge, no bleeding. Oropharynx: Mouth normal, tongue pink. pharynx clear,no erythema, tonsils no exudates, no abscesses noted, mucous membrane moist Neck: Supple, non-tender, no thyromegaly, no masses, no JVD, no bruits Breast:Deferred Chest:No tenderness, no crepitus, no paradoxical movement, no retractions Lungs:Clear, well-ventilated, symmetric, no rales, no wheezing, no rhonchi, no stridor, good breath sounds bilaterally Heart: Regular rate, regular rhythm, no murmur, no gallops Vascular: no peripheral edema, Abdomen: Soft, positive bowel sounds, nondistended, no guarding, Tender to palpation, no rebound, no masses no hepatomegaly, no splenomegaly, no Penaloza's sign, no hernias. Rectal: Deferred Genital: Deferred Neurological: Normal speech, motor function intact, sensory function intact Musculoskeletal: Neck nontender, full range of motion, back nontender, full range of motion, Extremities: nontender, full range of motion Skin: Color pink, dry, no turgor, no rash, no lacerations, no abrasions, no co ntusions. Lymphatic: Deferred Results (Laboratory/Radiology) Laboratory/Radiology Laboratory Tests Test 05/11/24 18:59 05/11/24 19:11 05/11/24 19:39 05/11/24 20:37 Urine Color LIGHT-YELLOW (YELLOW) Urine Appearance CLEAR (CLEAR) Urine pH 5.5 (5.0-8.0) Urine Specific [place] 1.025 (1.001-1.031) Urine Protein 10 mg/dL (NEGATIVE) H Urine Glucose (UA) NEGATIVE mg/dL (NEGATIVE) Urine Ketones NEGATIVE mg/dL (NEGATIVE) Urine Occult Blood NEGATIVE (NEGATIVE) Urine Nitrate NEGATIVE (NEGATIVE) Urine Bilirubin NEGATIVE mg/dL (NEGATIVE) Urine Urobilinogen 0.2 mg/dL (0.2-1.0) Urine Leukocyte Esterase NEGATIVE Mil/uL Urine RBC 2-5 /HPF (0-1) H Urine WBC 2-5 /HPF (0-1) H Urine Squamous Epithelial Cells RARE /HPF (0-2) Urine Bacteria None /HPF (None Seen) White Blood Count 9.2 K/uL (4.8-10.8) Red Blood Count 4.15 MIL/uL (4.00-5.50) Hemoglobin 11.2 g/dL (12.0-16.0) L Hematocrit 32.8 % (36-48) L Mean Corpuscular Volume 79.0 fL (79-99) Mean Corpuscular Hemoglobin 27.0 pg (27.0-33.0) Mean Corpuscular Hemoglobin Concent 34.1 g/dL (32.0-36.0) Red Cell Distribution Width 14.0 % (11.0-15.5) Platelet Count 202 K/uL (130-400) Mean Platelet Volume 11.3 fL (7.5-10.5) H Immature Granulocyte % (Auto) 0.3 % (0-1) Neutrophils (%) (Auto) 69.1 % (40.0-77.0) Lymphocytes (%) (Auto) 23.0 % (21.0-51.0) Monocytes (%) (Auto) 4.4 % (3.0-13.0) Eosinophils (%) (Auto) 2.8 % (0.0-8.0) Basophils (%) (Auto) 0.4 % (0.0-5.0) Neutrophils # (Auto) 6.4 K/uL (1.8-7.7) Lymphocytes # (Auto) 2.1 K/uL (1.0-4.8) Monocytes # (Auto) 0.4 K/uL (0.1-1.0) Eosinophils # (Auto) 0.26 K/uL (0.00-0.70) Basophils # (Auto) 0.04 K/uL (0.00-0.20) Absolute Immature Granulocyte (auto 0.03 K/uL (0-1) Nucleated Red Blood Cells 0.0 % (0.0-0.19) Sodium Level 141 mmol/L (136-145) Potassium Level 4.3 mmol/L (3.5-5.1) Chloride Level 103 mmol/L (101-111) Carbon Dioxide Level 30 mmol/L (21-32) Blood Urea Nitrogen 17 mg/dL (7-18) Creatinine 0.7 mg/dL (0.5-1.0) Glomerular Filtration Rate Calc 113 mL/min (>90) Random Glucose 141 mg/dL (70-105) H Total Calcium 10.3 mg/dL (8.5-10.1) H Total Bilirubin 0.4 mg/dL (0.2-1.0) Direct Bilirubin < 0.1 mg/dL (0.0-0.3) Aspartate Amino Transf (AST/SGOT) 16 U/L (10-37) Alanine Aminotransferase (ALT/SGPT) 9 U/L (12-78) L Alkaline Phosphatase 83 U/L (50-136) Total Creatine Kinase 57 U/L (21-232) # Troponin I High Sensitivity 5 ng/L (4-50) 5 ng/L (4-50) B-Type Natriuretic Peptide 28 pg/mL (0-100) Total Protein 7.8 g/dL (6.0-8.3) Albumin 3.4 g/dL (3.5-5.0) L Lipase 35 U/L (16-77) Serum Test, Qualitative NEGATIVE (NEGATIVE) Troponin I < 0.05 ng/mL (0.00-0.05) REASON: CHEST PAIN ORDERING PHYSICIAN: NIKOLAI MCKAY MD PROCEDURE: CXR1VW - CHEST 1VW CHEST 1VW CLINICAL HISTORY: CHEST PAIN COMPARISON: 12/30/2023 TECHNIQUE: Single view of the chest was obtained. FINDINGS: Lungs are clear. The cardiac size and mediastinum are unremarkable. The bony structures are within normal limits. IMPRESSION: No acute cardiopulmonary process identified. Labs Reviewed?: Yes EKG: (+) rhythm (Sinus rhythm) EKG Comment: EKG 05/11/2023 1841 ventricular rate 67, regular rate and rhythm, normal sinus rhythm, no STEMI ED Course ED Course Orders Procedure Category Date Status Time Vital Signs Per CPOE 05/11/24 Transmitted Routine 18:36 B-Type Natriuretic LAB 05/11/24 Complete Peptide 18:36 Chest 1vw RAD 05/11/24 Resulted 18:36 12 Lead Ekg Tracing- EKG 05/11/24 Complete Technical 18:36 Oxygen By Nc/Pulse Ox CPOE 05/11/24 Transmitted 18:36 Maintain Iv CPOE 05/11/24 Transmitted 18:36 Iv Insertion CPOE 05/11/24 Transmitted 18:36 Cardiac Monitoring CPOE 05/11/24 Transmitted 18:36 Pulse Oximetry With CPOE 05/11/24 Transmitted Vs And Prn 18:36 Cbc With Differential LAB 05/11/24 Complete 18:36 Activity: Br W/Brp CPOE 05/11/24 Transmitted With Assist 18:36 Creatine Kinase, Total LAB 05/11/24 Complete 18:36 Urinalysis Profile LAB 05/11/24 Complete 18:36 Troponin Poc Order LAB 05/11/24 Complete Only 18:36 Bedside Troponin-I LAB.ER 05/11/24 In Process (Poc) 18:36 Basic Metabolic Panel LAB 05/11/24 Complete 18:36 Troponin I High LAB 05/11/24 Complete Sensitivity 19:11 Testing, LAB 05/11/24 Complete Serum Hcg 19:11 Nitroglycerin 1gm PHA 05/11/24 Complete Oint (Nitroglycerin 1g 19:30 Acetaminophen 500mg PHA 05/11/24 Complete Tab (Tylenol 500mg T 19:30 Aspirin 325mg Tab PHA 05/11/24 Complete (Aspirin 325mg Tab) 19:30 Pantoprazole 40mg Inj PHA 05/11/24 Complete (Protonix 40mg Inj 19:30 Lipase LAB 05/11/24 Complete 19:11 Hepatic Function Panel LAB 05/11/24 Complete 19:11 Troponin I High LAB 05/11/24 Complete Sensitivity 20:23 Current Medications Medications (Trade) Dose Ordered Sig/Jolynn Route PRN Reason Start Time Stop Time Status Last Admin Dose Admin Acetaminophen (TYLenol 500MG TAB) 1,000 mg ONCE ONCE PO 05/11/24 19:30 05/11/24 19:31 DC 05/11/24 19:53 Aspirin (Aspirin 325mg Tab) 325 mg ONCE ONCE PO 05/11/24 19:30 05/11/24 19:31 DC 05/11/24 19:53 Nitroglycerin (Nitroglycerin 1gm Oint) 1 inch ONCE ONCE TD 05/11/24 19:30 05/11/24 19:31 DC 05/11/24 19:53 Pantoprazole Sodium (PROTonix 40MG INJ) 40 mg ONCE ONCE IVP 05/11/24 19:30 05/11/24 19:31 DC 05/11/24 19:52 Vital Signs Date Time Temp Pulse Resp B/P (MAP) Pulse Ox O2 Delivery O2 Flow Rate FiO2 05/11/24 19:46 98.8 62 18 135/67 100 Room Air* 0 21 05/11/24 18:47 98.8 67 18 150/71 99 Room Air* 0 21 05/11/24 18:36 98.4 75 18 131/60 99 Room Air HEART Score Response (Comments) Value History: Low suspicion (0) 0 EKG: Normal 0 Age: < 45yrs (0) 0 Risk Factors: 1-2 risk factors (+1) 1 Initial Troponin: Normal limit (0) 0 Total 1 Medical Decision Making MDM The patient is a 39-year-old female with a history of diabetes, hypertension, seizures who presents to the emergency department with complaints of left-sided chest pain onset last night around 10:00 p.m.. Patient denies any shortness of breath, cough, fevers, nausea vomiting or diarrhea, diaphoresis. CBC showed no leukocytosis, mild normocytic anemia, chemistry showed, normal renal function, no electrolyte imbalance, slightly elevated blood glucose, negative troponins x2, chest x-ray unremarkable. Patient's pain is reproducible with palpation. Not likely cardiac. Patient currently with no chest pain. Labs and imaging discussed with the patient who at this time would like to go home and agrees to follow up with PCP. Differential diagnosis: ACS, pneumonia, pneumothorax, costochondritis, dehydration, electrolyte imbalance Need for hospitalization: Patient does not meet criteria for hospitalization. There are no social concerns with this patient. DX & DISP Disposition: Discharge Departure Impression: Primary Impression: Chest pain Condition: Stable Additional Instructions: FOLLOW-UP WITH PRIMARY CARE PROVIDER IN 1 TO 2 DAYS. TAKE MEDICATIONS DIRECTED HERE IN THE EMERGENCY ROOM. OKAY TO CONTINUE HOME MEDICATIONS UNLESS OTHERWISE DISCUSSED DURING YOUR VISIT IN THE EMERGENCY ROOM TODAY. RETURN TO YOUR NEAREST EMERGENCY ROOM IF SYMPTOMS WORSEN OR IF THERE IS NO IMPROVEMENT. CALL 911 IF YOU NEED IMMEDIATE ASSISTANCE. TAKE TYLENOL OR MOTRIN [id number] NEEDED AND IF NO CONTRAINDICATIONS ARE PRESENT. INCREASE ORAL HYDRATION. A WOUND CULTURE OR URINE CULTURE WAS ORDERED HERE IN THE EMERGENCY ROOM DEPARTMENT PLEASE FOLLOW-UP WITH PRIMARY CARE PROVIDER AND ADVISE THEM TO GET REPEAT PORTS FROM OUR FACILITY. IF YOU HAD ANY ROSSY WRAP/SPLINTS THAT WERE APPLIED HERE, PLEASE DO NOT REMOVE THEM UNTIL YOU SEE YOUR PRIMARY CARE OR SPECIALTY. Referrals: JOE SEBASTIAN MD (PCP) Time of Disposition: 21:29 I have reviewed the case, and I agree with, Diagnosis and Plan VIV CANDELARIO SPACE TECHNOLOGIST May 11, 2024 21:30
== END 2024-05-11 21:41 | disposition home or self-care (01) ==
LOC: EDH 18:34
DX: R07.89 Other chest pain (principal); E11.9 Type 2 diabetes mellitus without complications; I10 Essential (primary) hypertension; Z79.84 Long term (current) use of oral hypoglycemic drugs; Z79.899 Other long term (current) drug therapy
CPT/HCPCS: 99285; 96374; 71045; 82550; 80076; 84484 ×3; 80048; 83880; 84703; 83690; 85025; 81001; 36415; 93005; J2470

== ENCOUNTER 2024-06-06 07:34 | Emergency (ER) | payer SELFPAY ==
[~2024-06-06] VITALS: Ht 170.2 cm; Wt 104.3 kg
[2024-06-06] MEDS: ondanSETRON 4MG INJ IVP ONE (08:12)
[2024-06-06] MEDS: LACTATED RINGERS 1000ML 1,000 ML IV ONE (08:12)
[2024-06-06 08:17] LABS: BASOPHILS # (AUTO) 0.04 K/uL (0.00-0.20); BASOPHILS % (AUTO) 0.4 % (0.0-5.0); EOSINOPHILS # (AUTO) 0.18 K/uL (0.00-0.70); EOSINOPHILS % (AUTO) 1.8 % (0.0-8.0); HEMATOCRIT 36.6 % (36-48); IMMATURE GRANULOCYTE ABSOLUTE 0.02 K/uL (0-1); LYMPHOCYTES # (AUTO) 2.3 K/uL (1.0-4.8); LYMPHOCYTES % (AUTO) 23.2 % (21.0-51.0); MEAN CORPUSCULAR HEMOGLOBIN 26.8 pg (27.0-33.0); MEAN CORPUSCULAR HGB CONC 34.7 g/dL (32.0-36.0); MEAN CORPUSCULAR VOLUME 77.2 fL (79-99); MONOCYTES # (AUTO) 0.6 K/uL (0.1-1.0); MONOCYTES % (AUTO) 5.7 % (3.0-13.0); NEUTROPHILS # (AUTO) 6.8 K/uL (1.8-7.7); NEUTROPHILS % (AUTO) 68.7 % (40.0-77.0); PLATELET COUNT (AUTO) 358 K/uL (130-400); RED BLOOD CELL COUNT(AUTO) 4.74 MIL/uL (4.00-5.50); RED CELL DISTRIBUTION WIDTH 13.5 % (11.0-15.5); WHITE BLOOD COUNT (AUTO) 9.9 K/uL (4.8-10.8)
[2024-06-06 08:25] LABS: CREATININE 1.1 mg/dL (0.5-1.0); POTASSIUM 3.4 mmol/L (3.5-5.1)
[2024-06-06 08:37] LABS: ALBUMIN 3.6 g/dL (3.5-5.0); BILIRUBIN,DIRECT 0.1 mg/dL (0.0-0.3); BILIRUBIN,TOTAL 0.5 mg/dL (0.2-1.0); TOTAL PROTEIN, SERUM 8.4 g/dL (6.0-8.3)
[2024-06-06] MEDS ORDERED: ONDA-243 PO (08:43)
--- NOTE | 2024-06-06 08:43 | ERN ---
ED Note History of Present Illness Stated Complaint: LIGHTHEADEDNESS AND EMESIS X 1 Chief Complaint: Dizzy/Light Headed Time Seen by MD: 07:36 Dictation: 39-year-old female presents to the ED for evaluation of dizziness onset 1 day ago. Patient mentioned she called 911 due to having lightheadedness and an episode of vomiting this morning. Patient denies any other associated symptoms at this time. Allergies: Coded Allergies: No Known Allergies (Unverified Allergy, Unknown, 09/28/23) Home Meds Active Scripts Ondansetron (Ondansetron Odt) 4 Mg Tab.rapdis, 4 MG PO BID for vomiting for 5 Days, #10 TAB Prov:KASANDRA OCHOA MD 06/06/24 Potassium Chloride (K-Dur/Klor-Con) 20 Meq Ertab, 20 MEQ PO BID for 5 Days, #10 TAB.EC Prov:CJ LORENZO NP 01/18/24 Clonidine HCl (Clonidine HCl) 0.2 Mg Tablet, 0.2 MG PO TID for high bp, #30 TAB Prov:JOSIE GRUBER MD 12/30/23 Nitrofurantoin Monohyd/M-Cryst (Macrobid 100 mg Capsule) 100 Mg Capsule, 100 MG PO BID for 7 Days, #14 CAP Prov:JOSIE GRUBER MD 12/30/23 Nitrofurantoin Monohyd/M-Cryst (Macrobid 100 mg Capsule) 100 Mg Capsule, 100 MG PO BID for 7 Days, #14 CAP Prov:SULLY LEWIS MD 12/27/23 Reported Medications Levetiracetam (Levetiracetam) 1,000 Mg Tablet, 1 TAB PO BID for 30 Days, #60 TAB 0 Refills 03/30/24 Losartan Potassium (Losartan Potassium) 100 Mg Tablet, 100 MG PO HS, TAB 03/30/24 Hydrochlorothiazide (Hydrochlorothiazide) 25 Mg Tablet, 1 TAB PO DAILY for 30 Days, #30 TAB 0 Refills 03/30/24 Amlodipine Besylate (Amlodipine Besylate) 10 Mg Tablet, 1 TAB PO DAILY for 30 Days, #30 TAB 0 Refills 03/30/24 Sitagliptin Phos/Metformin HCl (Janumet 50-1,000 mg Tablet) 50 Mg-1,000 Mg Tablet, 1 TAB PO BID for 30 Days, #60 TAB 0 Refills 03/30/24 Sitagliptin Phos/Metformin HCl (Janumet 50-1,000 mg Tablet) 50 Mg-1,000 Mg Tablet, 1 EACH PO BID, TAB 12/27/23 Losartan Potassium (Losartan Potassium) 100 Mg Tablet, 100 MG PO DAILY, TAB 12/27/23 Levetiracetam (Levetiracetam) 500 Mg Tablet, 1000 MG PO BID, TAB 12/27/23 Hydrochlorothiazide (Hydrochlorothiazide) 25 Mg Tablet, 25 MG PO DAILY, TAB 12/27/23 Amlodipine Besylate (Amlodipine Besylate) 10 Mg Tablet, 10 MG PO DAILY for 30 Days, #30 TAB 0 Refills 12/27/23 Losartan Potassium (Losartan Potassium) 100 Mg Tablet, 100 MG PO DAILYDINNER, TAB 09/28/23 Hydrochlorothiazide (Hydrochlorothiazide) 25 Mg Tablet, 25 MG PO DAILY, TAB 09/28/23 Amlodipine Besylate (Amlodipine Besylate) 10 Mg Tablet, 10 MG PO DAILY for 30 Days, #30 TAB 0 Refills 09/28/23 Sitagliptin Phos/Metformin HCl (Janumet 50-1,000 mg Tablet) 50 Mg-1,000 Mg Tablet, 1 EACH PO BIDMEALS, TAB 09/28/23 Levetiracetam (Levetiracetam) 500 Mg Tab.er.24h, 500 MG PO BID, TAB 09/28/23 Past Medical History Past Medical History: Diabetes-Type II, Hypertension, Seizure Additional Past Medical Hx: OBESITY Surgical History: None Surgical History Other: C SECTION X3 Family History: Negative Social History: Drugs, ETOH, Negative History: Not Applicable Review of System Dictation Constitutional: Negative for fever,chills, and weight loss Eyes: Negative for injury, pain,redness, and discharge ENT: Negative for injury,pain or swelling Cardiovascular: Negative for chest pain, palpitations, and edema Respiratory: Negative for shortness of breath, cough, and wheezing, Abdomen/GI: Positive for vomiting Negative for abdominal pain, nausea, diarrhea, and constipation Back: Negative for injury and pain : Negative for injury, bleeding and discharge MS/Extremity: Negative for injury and deformity Skin: Negative for rash, and discoloration Neuro: Positive for dizziness, lightheadedness Negative for headache, weakness, numbness, tingling, and seizure Psych: Negative for suicide ideation, homicidal ideation, and hallucinations Initial Vital Sign VS Vital Signs Date Time Temp Pulse Resp B/P (MAP) Pulse Ox O2 Delivery O2 Flow Rate FiO2 06/06/24 08:05 98.4 72 18 131/67 97 Room Air* 0 21 Physical Exam Dictation General: awake, alert, NAD Head/Face: Normocephalic, atraumatic Eyes: PERRL, EOMI, vision at baseline ENT: oral cavity clear, TMs clear, no signs of infection Neck: Trachea midline, supple, no nuchal rigidity Cardiovascular: RRR, normal S1/S2, No MRGs, no JVD Respiratory: CTAB, no respiratory distress, No rales or wheezes Abdomen: Soft, non-tender, non-distended, normal bowel sounds, no guarding or rebound. Skin: Warm, dry, normal turgor, no rash MS/Extremity: Pulses equal, no cyanosis, neurovascular intact, FROM Neuro: COAx4, GCS 15, strength 5/5, CN 2-12 intact, normal cerebellar exam, normal gait, Psych: Normal behavior, mood, and affect normal Results (Laboratory/Radiology) Laboratory/Radiology Laboratory Tests Test 06/06/24 08:03 White Blood Count 9.9 K/uL (4.8-10.8) Red Blood Count 4.74 MIL/uL (4.00-5.50) Hemoglobin 12.7 g/dL (12.0-16.0) Hematocrit 36.6 % (36-48) Mean Corpuscular Volume 77.2 fL (79-99) L Mean Corpuscular Hemoglobin 26.8 pg (27.0-33.0) L Mean Corpuscular Hemoglobin Concent 34.7 g/dL (32.0-36.0) Red Cell Distribution Width 13.5 % (11.0-15.5) Platelet Count 358 K/uL (130-400) Mean Platelet Volume 10.6 fL (7.5-10.5) H Immature Granulocyte % (Auto) 0.2 % (0-1) Neutrophils (%) (Auto) 68.7 % (40.0-77.0) Lymphocytes (%) (Auto) 23.2 % (21.0-51.0) Monocytes (%) (Auto) 5.7 % (3.0-13.0) Eosinophils (%) (Auto) 1.8 % (0.0-8.0) Basophils (%) (Auto) 0.4 % (0.0-5.0) Neutrophils # (Auto) 6.8 K/uL (1.8-7.7) Lymphocytes # (Auto) 2.3 K/uL (1.0-4.8) Monocytes # (Auto) 0.6 K/uL (0.1-1.0) Eosinophils # (Auto) 0.18 K/uL (0.00-0.70) Basophils # (Auto) 0.04 K/uL (0.00-0.20) Absolute Immature Granulocyte (auto 0.02 K/uL (0-1) Nucleated Red Blood Cells 0.0 % (0.0-0.19) Sodium Level 136 mmol/L (136-145) Potassium Level 3.4 mmol/L (3.5-5.1) L Chloride Level 100 mmol/L (101-111) L Carbon Dioxide Level 27 mmol/L (21-32) Blood Urea Nitrogen 24 mg/dL (7-18) H Creatinine 1.1 mg/dL (0.5-1.0) H Glomerular Filtration Rate Calc 66 mL/min (>90) Random Glucose 142 mg/dL (70-105) H Total Calcium 9.4 mg/dL (8.5-10.1) Total Bilirubin 0.5 mg/dL (0.2-1.0) Direct Bilirubin 0.1 mg/dL (0.0-0.3) Aspartate Amino Transf (AST/SGOT) 12 U/L (10-37) Alanine Aminotransferase (ALT/SGPT) 15 U/L (12-78) Alkaline Phosphatase 84 U/L (50-136) Troponin I High Sensitivity 7 ng/L (4-50) Total Protein 8.4 g/dL (6.0-8.3) H Albumin 3.6 g/dL (3.5-5.0) Lipase 32 U/L (16-77) Serum Test, Qualitative NEGATIVE (NEGATIVE) Labs Reviewed?: Yes EKG Comment: EKG 06/06/2024 time 9:10 a.m. ventricular rate 62, ME 160, QRS D 93, QT 404. Sinus rhythm. No STEMI ED Course ED Course Orders Procedure Category Date Status Time 12 Lead Ekg Tracing- EKG 06/06/24 Complete Technical 07:40 Cbc With Differential LAB 06/06/24 Complete 07:40 Basic Metabolic Panel LAB 06/06/24 Complete 07:40 Hepatic Function Panel LAB 06/06/24 Complete 07:40 Troponin I High LAB 06/06/24 Complete Sensitivity 07:40 Testing, LAB 06/06/24 Complete Serum Hcg 07:40 Lipase LAB 06/06/24 Complete 07:40 Ondansetron 4mg Inj PHA 06/06/24 Complete (Zofran 4mg Inj) 08:00 Lactated Ringers PHA 06/06/24 Complete 1000ml (Lactated 08:00 Current Medications Medications (Trade) Dose Ordered Sig/Jolynn Route PRN Reason Start Time Stop Time Status Last Admin Dose Admin Lactated Ringer's 1,000 ml @ 0 mls/hr ONCE ONCE IV 06/06/24 08:00 06/06/24 08:01 DC 06/06/24 08:12 Ondansetron HCl (zoFRAN 4MG INJ) 4 mg ONCE ONCE IVP 06/06/24 08:00 06/06/24 08:01 DC 06/06/24 08:12 Vital Signs Date Time Temp Pulse Resp B/P (MAP) Pulse Ox O2 Delivery O2 Flow Rate FiO2 06/06/24 09:45 98.4 62 18 127/75 98 Room Air* 0 21 06/06/24 08:05 98.4 72 18 131/67 97 Room Air* 0 21 HEART Score Response (Comments) Value History: Low suspicion (0) 0 EKG: Normal 0 Age: < 45yrs (0) 0 Risk Factors: 1-2 risk factors (+1) 1 Initial Troponin: Normal limit (0) 0 HEART Score Risk: Low Risk for MACE (1-3) Total 1 Medical Decision Making MDM MDM: Differential diagnosis: Dizziness, lightheadedness, electrolyte imbalance Risk of complication and/or morbidity or mortality of patient management: None Medications-Per medication reconciliation Need for hospitalization: Patient does not meet criteria for hospitalization. Need for emergency major/minor surgery: No There are no social concerns with this patient. I independently interpreted the test that were performed, results were reviewed by me and considered findings on radiology if ordered. DX & DISP Disposition: Discharge Departure Impression: Primary Impression: Dizziness Condition: Stable Scripts Ondansetron (Ondansetron Odt) 4 Mg Tab.rapdis 4 MG PO BID for vomiting for 5 Days, #10 TAB Prov: KASANDRA OCHOA MD 06/06/24 Referrals: JOE SEBASTIAN MD (PCP) KASANDRA OCHOA MD Jun 06, 2024 08:43
--- NOTE | 2024-06-06 09:13 | EKG ---
[facility] Test Date: 2024-06-06 Test Time: 09:10:08 Pat Name: MARGO MURPHY Department: ED Room: Gender: F Hat Blocker: [id number] : 1985 Requested By: KASANDRA OCHOA Order Number: [id number] Reading MD: Ino Samuel Measurements Intervals [place] Rate: 62 P: 48 FL: 160 QRS: 39 QRSD: 93 T: 71 QT: 404 QTc: 411 Interpretive Statements Sinus rhythm Compared to ECG 05/11/2024 18:41:57 No significant changes Electronically Signed On 06-08-2024 19:57:55 [employer] by Ino Samuel Please click the below link to view image of tracing.
[2024-06-06 09:45] VITALS: BP 127/75; PULSE 62; RESP 18; TEMP 98.4; O2SAT 98
== END 2024-06-06 10:02 | disposition home or self-care (01) ==
LOC: EDH 07:34
DX: R42 Dizziness and giddiness (principal); R11.10 Vomiting, unspecified; E11.9 Type 2 diabetes mellitus without complications; I10 Essential (primary) hypertension; E66.9 Obesity, unspecified; Z79.84 Long term (current) use of oral hypoglycemic drugs; Z79.899 Other long term (current) drug therapy; Z68.36 Body mass index [BMI] 36.0-36.9, adult; Z98.890 Other specified postprocedural states
CPT/HCPCS: 99284; 96374; 96361; 80076; 84484; 80048; 84703; 83690; 85025; 36415; 93005; J7120; J2405

== ENCOUNTER 2024-11-22 12:15 | Emergency (ER) | payer SELFPAY ==
[~2024-11-22] VITALS: Ht 165.1 cm; Wt 127.0 kg
[~2024-11-22 12:15] MED LIST changes: +LEVE-21 PO; +LEVE100023 PO; -LEVE10006 PO; -LEVE500T98 PO; +ONDA-243 PO
[2024-11-22] MEDS: 0.9%NACL 1000ML 1,000 ML IV ONE (13:45)
[2024-11-22 13:51] LABS: IMMATURE GRANULOCYTE ABSOLUTE 0.05 K/uL (0-1); NUCLEATED RED BLOOD CELLS 0.0 % (0.0-0.19); PLATELET COUNT (AUTO) 373 K/uL (130-400); RED BLOOD CELL COUNT(AUTO) 4.45 MIL/uL (4.00-5.50); RED CELL DISTRIBUTION WIDTH 14.7 % (11.0-15.5); WHITE BLOOD COUNT (AUTO) 9.8 K/uL (4.8-10.8)
[2024-11-22 14:02] LABS: CREATININE 0.7 mg/dL (0.5-1.0); GLOMERULAR FILTR. RATE CALC 113.0 mL/min (>90); GLUCOSE,RANDOM 380.0 mg/dL (70-105); SODIUM SERUM 137.0 mmol/L (136-145); UREA NITROGEN, BLOOD 16.0 mg/dL (7-18)
[2024-11-22 15:19] VITALS: BP 151/83; PULSE 76; RESP 18; TEMP 98.2; O2SAT 98
--- NOTE | 2024-11-22 15:39 | ERN ---
ED Note History of Present Illness Stated Complaint: HEADACHE Chief Complaint: Blood Sugar Problem Time Seen by MD: 12:16 Time Seen by Midlevel: 12:20 Dictation: 39-year-old female coming in with complaints of elevated blood sugar in the 500s. Patient states she takes Janumet for diabetes but she has had a prolonged with the pharmacy and was not able to get it. Patient states she found in wanted her purse today and took it in the morning. Past medical history of hypertension, diabetes, seizures. No other complaints at this time. Allergies: Coded Allergies: No Known Allergies (Unverified Allergy, Unknown, 09/28/23) Home Meds Active Scripts Ondansetron (Ondansetron Odt) 4 Mg Tab.rapdis, 4 MG PO BID for vomiting for 5 Days, #10 TAB Prov:KASANDRA OCHOA MD 06/06/24 Potassium Chloride (K-Dur/Klor-Con) 20 Meq Ertab, 20 MEQ PO BID for 5 Days, #10 TAB.EC Prov:CJ LORENZO NP 01/18/24 Clonidine HCl (Clonidine HCl) 0.2 Mg Tablet, 0.2 MG PO TID for high bp, #30 TAB Prov:JOSIE GRUBER MD 12/30/23 Nitrofurantoin Monohyd/M-Cryst (Macrobid 100 mg Capsule) 100 Mg Capsule, 100 MG PO BID for 7 Days, #14 CAP Prov:JOSIE GRUBER MD 12/30/23 Nitrofurantoin Monohyd/M-Cryst (Macrobid 100 mg Capsule) 100 Mg Capsule, 100 MG PO BID for 7 Days, #14 CAP Prov:SULLY LEWIS MD 12/27/23 Reported Medications Levetiracetam (Levetiracetam) 1,000 Mg Tablet, 1 TAB PO BID for 30 Days, #60 TAB 0 Refills 03/30/24 Losartan Potassium (Losartan Potassium) 100 Mg Tablet, 100 MG PO HS, TAB 03/30/24 Hydrochlorothiazide (Hydrochlorothiazide) 25 Mg Tablet, 1 TAB PO DAILY for 30 Days, #30 TAB 0 Refills 03/30/24 Amlodipine Besylate (Amlodipine Besylate) 10 Mg Tablet, 1 TAB PO DAILY for 30 Days, #30 TAB 0 Refills 03/30/24 Sitagliptin Phos/Metformin HCl (Janumet 50-1,000 mg Tablet) 50 Mg-1,000 Mg Tablet, 1 TAB PO BID for 30 Days, #60 TAB 0 Refills 03/30/24 Sitagliptin Phos/Metformin HCl (Janumet 50-1,000 mg Tablet) 50 Mg-1,000 Mg Tablet, 1 EACH PO BID, TAB 12/27/23 Losartan Potassium (Losartan Potassium) 100 Mg Tablet, 100 MG PO DAILY, TAB 12/27/23 Levetiracetam (Levetiracetam) 500 Mg Tablet, 1000 MG PO BID, TAB 12/27/23 Hydrochlorothiazide (Hydrochlorothiazide) 25 Mg Tablet, 25 MG PO DAILY, TAB 12/27/23 Amlodipine Besylate (Amlodipine Besylate) 10 Mg Tablet, 10 MG PO DAILY for 30 Days, #30 TAB 0 Refills 12/27/23 Losartan Potassium (Losartan Potassium) 100 Mg Tablet, 100 MG PO DAILYDINNER, TAB 09/28/23 Hydrochlorothiazide (Hydrochlorothiazide) 25 Mg Tablet, 25 MG PO DAILY, TAB 09/28/23 Amlodipine Besylate (Amlodipine Besylate) 10 Mg Tablet, 10 MG PO DAILY for 30 Days, #30 TAB 0 Refills 09/28/23 Sitagliptin Phos/Metformin HCl (Janumet 50-1,000 mg Tablet) 50 Mg-1,000 Mg Tablet, 1 EACH PO BIDMEALS, TAB 09/28/23 Levetiracetam (Levetiracetam) 500 Mg Tab.er.24h, 500 MG PO BID, TAB 09/28/23 Past Medical History Past Medical History: Diabetes-Type II, Hypertension, Seizure Additional Past Medical Hx: OBESITY Surgical History: None Surgical History Other: C SECTION X3 Family History: Negative Social History: Drugs, ETOH, Negative History: Not Applicable Review of System Dictation Constitutional: Negative for fever,chills, and weight loss Eyes: Negative for injury, pain,redness, and discharge ENT: Negative for injury,pain or swelling Cardiovascular: Negative for chest pain, palpitations, and edema Respiratory: Negative for shortness of breath, cough, and wheezing, Abdomen/GI: Negative for abdominal pain, nausea, vomiting, diarrhea, and constipation Back: Negative for injury and pain : Negative for injury, bleeding and discharge MS/Extremity: Negative for injury and deformity Skin: Negative for rash, and discoloration Neuro: Negative for headache, weakness, numbness, tingling, and seizure Psych: Negative for suicide ideation, homicidal ideation, and hallucinations Review of Systems: was completed Initial Vital Sign VS Vital Signs Date Time Temp Pulse Resp B/P (MAP) Pulse Ox O2 Delivery O2 Flow Rate FiO2 11/22/24 12:41 98.2 79 18 169/89 98 11/22/24 15:19 Room Air* 0 21 Physical Exam Dictation General: awake, alert, NAD Head/Face: Normocephalic, atraumatic Eyes: PERRL, EOMI, vision at baseline ENT: oral cavity clear, TMs clear, no signs of infection Neck: Trachea midline, supple, no nuchal rigidity Cardiovascular: RRR, normal S1/S2, No MRGs, no JVD Respiratory: CTAB, no respiratory distress, No rales or wheezes Abdomen: Soft, non-tender, non-distended, normal bowel sounds, no guarding or rebound. Skin: Warm, dry, normal turgor, no rash MS/Extremity: Pulses equal, no cyanosis, neurovascular intact, FROM Neuro: COAx4, GCS 15, strength 5/5, CN 2-12 intact, normal cerebellar exam, normal gait, Psych: Normal behavior, mood, and affect normal Results (Laboratory/Radiology) Laboratory/Radiology Laboratory Tests Test 11/22/24 13:43 11/22/24 15:25 White Blood Count 9.8 K/uL (4.8-10.8) Red Blood Count 4.45 MIL/uL (4.00-5.50) Hemoglobin 11.7 g/dL (12.0-16.0) L Hematocrit 35.0 % (36-48) L Mean Corpuscular Volume 78.7 fL (79-99) L Mean Corpuscular Hemoglobin 26.3 pg (27.0-33.0) L Mean Corpuscular Hemoglobin Concent 33.4 g/dL (32.0-36.0) Red Cell Distribution Width 14.7 % (11.0-15.5) Platelet Count 373 K/uL (130-400) Mean Platelet Volume 11.3 fL (7.5-10.5) H Immature Granulocyte % (Auto) 0.5 % (0-1) Neutrophils (%) (Auto) 64.8 % (40.0-77.0) Lymphocytes (%) (Auto) 24.4 % (21.0-51.0) Monocytes (%) (Auto) 5.2 % (3.0-13.0) Eosinophils (%) (Auto) 4.4 % (0.0-8.0) Basophils (%) (Auto) 0.7 % (0.0-5.0) Neutrophils # (Auto) 6.4 K/uL (1.8-7.7) Lymphocytes # (Auto) 2.4 K/uL (1.0-4.8) Monocytes # (Auto) 0.5 K/uL (0.1-1.0) Eosinophils # (Auto) 0.43 K/uL (0.00-0.70) Basophils # (Auto) 0.07 K/uL (0.00-0.20) Absolute Immature Granulocyte (auto 0.05 K/uL (0-1) Nucleated Red Blood Cells 0.0 % (0.0-0.19) Sodium Level 137 mmol/L (136-145) Potassium Level 3.9 mmol/L (3.5-5.1) Chloride Level 102 mmol/L (101-111) Carbon Dioxide Level 26 mmol/L (21-32) Blood Urea Nitrogen 16 mg/dL (7-18) Creatinine 0.7 mg/dL (0.5-1.0) Glomerular Filtration Rate Calc 113 mL/min (>90) Random Glucose 380 mg/dL (70-105) H Total Calcium 9.4 mg/dL (8.5-10.1) Whole Blood Glucose 226 MG/DL (70-110) H Labs Reviewed?: Yes ED Course ED Course Orders Procedure Category Date Status Time Cbc With Differential LAB 11/22/24 Complete 13:33 Basic Metabolic Panel LAB 11/22/24 Complete 13:33 0.9%Nacl 1000ml (Ns PHA 11/22/24 Complete 1000ml) 14:00 Acetaminophen 325 Tab PHA 11/22/24 Complete (Tylenol 325mg Tab 14:17 Insulin Regular, PHA 11/22/24 Complete Human 3ml (Humulin R 14:17 Current Medications Medications (Trade) Dose Ordered Sig/Jolynn Route PRN Reason Start Time Stop Time Status Last Admin Dose Admin Acetaminophen (TYLenol 325MG TAB) 650 mg ONCE STAT PO 11/22/24 14:17 11/22/24 14:19 DC 11/22/24 14:33 Insulin Human Regular (humuLIN R 100 UNIT/ML 3ML) 5 unit ONCE STAT IV 11/22/24 14:17 11/22/24 14:19 DC 11/22/24 14:34 Sodium Chloride 1,000 ml @ 1,000 mls/hr Q1H ONCE IV 11/22/24 14:00 11/22/24 14:59 DC 11/22/24 13:45 Vital Signs Date Time Temp Pulse Resp B/P (MAP) Pulse Ox O2 Delivery O2 Flow Rate FiO2 11/22/24 15:19 98.2 76 18 151/83 98 Room Air* 0 21 11/22/24 12:41 98.2 79 18 169/89 98 Medical Decision Making MDM MDM: 39-year-old female coming in with complaints of elevated blood sugar in the 500s. Patient states she takes Janumet for diabetes but she has had a prolonged with the pharmacy and was not able to get it. Patient states she found in wanted her purse today and took it in the morning. Past medical history of hypertension, diabetes, seizures. No other complaints at this time.CBC shows no leukocytosis, microcytic anemia, hemoglobin of 11 and hematocrit of 35. No thrombocytopenia. Chemistry shows no electrolyte abnormality. Initial blood sugar is 380, with a normal carbon dioxide level in the serum. After 1 L of fluids and 5 units of insulin IV blood sugar is now 226. Discussed findings with the patient. Educated on signs and symptoms of return back to the ER answe red all questions. Differential diagnosis: DKA, hyperglycemia, HHS, dehydration, noncompliant Rationale: Tests considered and ordered secondary to shared decision making include: Previous outside records reviewed: Old ER visits. Risk of complication and/or morbidity or mortality of patient management: None Medications-Per medication reconciliation Need for hospitalization: Patient does not meet criteria for hospitalization. Need for emergency major/minor surgery: No There are no social concerns with this patient. Prescription drug management Prescriptions will include symptomatic care Patient's prior external medical records from other ER visits were reviewed by me as indicated. Prior testing and results from previous visits were reviewed. Prior tests were taken into account with medical decision making and resource utilization, independent historian/historians were used to obtain complete medical history. I independently interpreted the test that were performed, results were reviewed by me and considered findings on radiology if ordered. Medical management and examination interpretation discussions were had by me with other qualified healthcare professionals as indicated for the patient's care. DX & DISP Disposition: Discharge Departure Impression: Primary Impression: Hyperglycemia Condition: Stable Additional Instructions: Please take your diabetic medications as prescribed. Follow up with your PCP. Return to the hospital as needed. Referrals: JOE SEBASTIAN MD (PCP) Time of Disposition: 15:39 I have reviewed the case, and I agree with, Diagnosis and Plan TALI PEMBERTON NP Nov 22, 2024 15:39
== END 2024-11-22 15:51 | disposition home or self-care (01) ==
LOC: EDH 12:15
DX: E11.65 Type 2 diabetes mellitus with hyperglycemia (principal); I10 Essential (primary) hypertension; E66.9 Obesity, unspecified; Z79.84 Long term (current) use of oral hypoglycemic drugs; Z79.899 Other long term (current) drug therapy; Z68.42 Body mass index [BMI] 45.0-49.9, adult
CPT/HCPCS: 99283; 96374; 96361; 80048; 85025; 82948; 36415; J1815; J7030